=== PATIENT | female | born 1980 | race Caucasian/White ===

== ENCOUNTER 2017-08-04 22:58 | Emergency (ER) | payer MEDICAID ==
[~2017-08-04] VITALS: Ht 154.9 cm; Wt 55.3 kg
[2017-08-04 23:07] VITALS: Ht 154.9 cm; Wt 55.3 kg
[2017-08-04 23:28] VITALS: BP 121/73
== END 2017-08-04 23:28 | disposition home or self-care (01) ==
LOC: ED 22:58
DX: O26.891 Other specified pregnancy related conditions, first trimester (principal); O21.0 Mild hyperemesis gravidarum; Z3A.14 14 weeks gestation of pregnancy

== ENCOUNTER 2017-10-06 10:13 | Emergency (ER) | payer OTHER ==
[~2017-10-06] VITALS: Ht 154.9 cm; Wt 56.8 kg
[2017-10-06 10:18] VITALS: Ht 154.9 cm; Wt 56.8 kg
[2017-10-06 10:50] VITALS: BP 125/61
== END 2017-10-06 10:50 | disposition home or self-care (01) ==
LOC: ED 10:13
DX: O26.893 Other specified pregnancy related conditions, third trimester (principal); Z3A.24 24 weeks gestation of pregnancy; W54.1XXA Struck by dog, initial encounter

== ENCOUNTER 2018-10-02 22:09 | Emergency (ER) | payer SELFPAY ==
[~2018-10-02] VITALS: Ht 154.9 cm; Wt 49.9 kg
[2018-10-02 22:36] VITALS: BP 117/83; Ht 154.9 cm; Wt 49.9 kg
== END 2018-10-02 23:09 | disposition left against medical advice (07) ==
LOC: ED 22:09
DX: Z53.21 Procedure and treatment not carried out due to patient leaving prior to being seen by health care provider (principal)